=== PATIENT | male | born 1945 | race Caucasian/White ===

== ENCOUNTER 2018-10-04 13:54 | Emergency (ER) | payer MEDICARE ==
[2018-10-04 14:04] VITALS: BP 164/77
[2018-10-04] MEDS ORDERED: AZITHROMYCIN 250 MG TABLET PO STA (14:17)
--- NOTE | 2018-10-04 14:20 | ED Physician Documentation ---
PD HPI HEENT - Stated complaint Stated Complaint: JAW PX - Chief complaint Chief Complaint: Heent - History obtained from History obtained from: Patient - History of Present Illness Timing - onset: How many days ago (2) Timing - duration: Days (2) Timing - details: Still present Location: Tooth Similar symptoms before: Diagnosis (dental abscess) - Additional information Additional information: The patient is a 72-year-old male who presents with toothache of left lower molar, starting 2 days ago and persisting. He denies fever or difficulty swallowing. He states, "my teeth are a mess of problems." He has a history of similar symptoms in the past and has been treated with Zithromax. He currently takes methotrexate for psoriatic arthritis. Review of Systems Constitutional: denies: Fever Eyes: denies: Irritation Ears: denies: Ear pain Nose: denies: Congestion Throat: reports: Dental pain / toothache. denies: Sore throat Cardiac: denies: Chest pain / pressure Respiratory: denies: Dyspnea, Cough GI: denies: Abdominal Pain, Nausea, Vomiting Skin: denies: Rash Musculoskeletal: denies: Neck pain Neurologic: denies: Headache PD PAST MEDICAL HISTORY - Past Medical History Cardiovascular: Hypertension, High cholesterol : Kidney stones Musculoskeletal: Other (Psoriatic arthritis) - Past Surgical History Past Surgical History: Yes Ortho: Spine surgery HEENT: Tonsil/Adenoidectomy - Present Medications Home Medications: Ambulatory Orders Medication Instructions Recorded Confirmed Atenolol 10/10/14 10/10/14 Atorvastatin Calcium 10/10/14 10/10/14 Azithromycin [Zithromax] 250 mg PO DAILY #4 tablet 10/10/14 Etanercept [Enbrel] 10/10/14 10/10/14 Hydrocodone/Acetaminophen 1 - 2 each PO Q6H PRN #15 tablet 10/10/14 [Hydrocodon-Acetaminophen 5-325] Leucovorin Calcium 10/10/14 10/10/14 Methotrexate Sodium [Methotrexate] 10/10/14 10/10/14 Tamsulosin HCl [Flomax] 10/10/14 10/10/14 predniSONE [Prednisone] 12 mg PO DAILY 10/10/14 10/10/14 Azithromycin [Zithromax] 0 mg PO DAILY #6 tablet 10/04/18 Hydrocodone/Acetaminophen 1 - 2 each PO Q6H PRN #14 tablet 10/04/18 [Hydrocodon-Acetaminophen 5-325] - Allergies Allergies/Adverse Reactions: Allergies Allergy/AdvReac Type Severity Reaction Status Date / Time cephalexin Allergy Unknown Verified 10/04/18 14:07 clindamycin Allergy Unknown Verified 10/04/18 14:07 infliximab [From Remicade] Allergy Unknown Verified 10/04/18 14:07 - Social History Does the pt smoke?: No Smoking Status: Never smoker Does the pt drink ETOH?: Yes Does the pt have substance abuse?: No - POLST Patient has POLST: No PD ED PE NORMAL - Vitals Vital signs reviewed: Yes (hypertensive) - General General: Alert and oriented X 3, Well developed/nourished - HEENT HEENT: Atraumatic, Pharynx benign, Other (Poor dentition, with a nearly totally decayed left rear molar, second from the rear. The fractured tooth is tender to palpation. There is no gingival swelling, and no mandibular tenderness to palpation. Oropharynx is nonerythematous.) - Neck Neck: No adenopathy - Cardiac Cardiac: RRR - Respiratory Respiratory: No respiratory distress, Clear bilaterally - Abdomen Abdomen: Other (Rotund abdomen.) - Derm Derm: No rash - Neuro Neuro: Alert and oriented X 3, No motor deficit, Normal speech Results - Vitals Vitals: Oxygen O2 Source Room air PD MEDICAL DECISION MAKING - ED course Complexity details: considered differential, d/w patient ED course: The patient's presentation is most consistent with dental abscess in the left lower molar. There is no evidence of peritonsillar abscess. Treatment in the emergency department included administration of Zithromax 500 mg orally. He is being discharged with prescription for Zithromax and for Vicodin, 14 tablets. I discussed with him the importance of follow-up with dentistry. I discussed with him potentially worrisome signs or symptoms that should prompt reevaluation in the emergency department. Departure - Departure Disposition: 01 Home, Self Care Clinical Impression: Dental abscess Condition: Stable Instructions: ED Abscess Dental Follow-Up: DONALD ROBLEDO ARNP [Primary Care Provider] - Prescriptions: Azithromycin [Zithromax] 0 mg PO DAILY #6 tablet Hydrocodone/Acetaminophen [Hydrocodon-Acetaminophen 5-325] 1 - 2 each PO Q6H PRN #14 tablet PRN Reason: pain Comments: Take Zithromax daily as prescribed. You can use Vicodin as prescribed if needed for pain. Follow-up with the dentist as soon as possible. Call to schedule an appointment. Return to the emergency department if you develop increasing pain or facial swelling, difficulty swallowing, or otherwise worsening symptoms. Discharge Date/Time: 10/04/18 14:27
== END 2018-10-04 14:27 | disposition home or self-care (01) ==
LOC: ED 13:54
DX: K04.7 Periapical abscess without sinus (principal); I10 Essential (primary) hypertension; E78.00 Pure hypercholesterolemia, unspecified; L40.50 Arthropathic psoriasis, unspecified
CPT/HCPCS: 99283; A9270

== ENCOUNTER 2019-04-18 11:11 | Emergency (ER) | payer MEDICARE ==
--- NOTE | 2019-04-18 13:04 | XRAY Report ---
Reason: fall/trauma Procedure Date: 04/18/2019 Accession Number: [id number] / [id number] Procedure: XR - Ribs w/PA Chest LT CPT Code: Final Report FULL RESULT: EXAM: LEFT RIB RADIOGRAPHY EXAM DATE: 04/18/2019 12:54 PM. CLINICAL HISTORY: Fall on wet ground 04/16/2019. Bruising and trauma. COMPARISON: None. TECHNIQUE: 1 view of the chest and 2 views of the ribs. FINDINGS: Bones: There are nondisplaced fractures of the lateral left 10th, 11th, and 12th ribs. There is a lateral left 8th rib fracture that appears nonacute. Healed previous fractures of the anterior left 8th and 9th ribs. Lungs: No pneumothorax identified. Atelectasis at the lung bases. Mediastinum: Moderate cardiomegaly. Tortuous thoracic aorta. Other: Moderate to severe degenerative changes at the right shoulder. Healed previous right lateral 4th and 9th rib fractures. IMPRESSION: Acute fractures of the left 10th, 11th, and 12th ribs. No pneumothorax detected. RADIA
[2019-04-18] MEDS ORDERED: BACITRACIN ZINC OINT 1 PACKET TOP STA (14:23)
--- NOTE | 2019-04-18 14:26 | ED Physician Documentation ---
History of Present Illness - Stated complaint Stated Complaint: LT SIDE RIB PX - Chief complaint Chief Complaint: Trauma Ch/Bk - Additonal information Additional information: This is a 73-year-old male with a history of psoriatic arthritis, who presents with left-sided rib pain.On Sunday patient was walking outside of his house and slipped on icy step and landed on his left flank/posterior chest. He heard a crack and he has had immediate pain in the area. He he states that since that time he has felt his breathing has been a bit shallow because of pain. No actual shortness of breath. He denies any anterior abdominal pain. No blood in his urine. He did also tear some skin on his right forearm, has been keeping this dressed with a nonstick bandage and some manuka honey. He denies hitting his head or losing consciousness. Review of Systems Constitutional: denies: Fever Cardiac: reports: Chest pain / pressure Respiratory: denies: Cough GI: denies: Abdominal Pain Musculoskeletal: denies: Neck pain Neurologic: denies: Focal weakness PD PAST MEDICAL HISTORY - Past Medical History Cardiovascular: Hypertension, High cholesterol : Kidney stones Musculoskeletal: Other (Psoriatic arthritis) - Past Surgical History Past Surgical History: Yes Ortho: Spine surgery HEENT: Tonsil/Adenoidectomy - Present Medications Home Medications: Ambulatory Orders Medication Instructions Recorded Confirmed Atorvastatin Calcium 10/10/14 10/10/14 Azithromycin [Zithromax] 250 mg PO DAILY #4 tablet 10/10/14 Etanercept [Enbrel] 10/10/14 10/10/14 Hydrocodone/Acetaminophen 1 - 2 each PO Q6H PRN #15 tablet 10/10/14 [Hydrocodon-Acetaminophen 5-325] Leucovorin Calcium 10/10/14 10/10/14 Methotrexate Sodium [Methotrexate] 10/10/14 10/10/14 Tamsulosin HCl [Flomax] 10/10/14 10/10/14 atenoloL [Atenolol] 10/10/14 10/10/14 predniSONE [Prednisone] 12 mg PO DAILY 10/10/14 10/10/14 Azithromycin [Zithromax] 0 mg PO DAILY #6 tablet 10/04/18 Hydrocodone/Acetaminophen 1 - 2 each PO Q6H PRN #14 tablet 10/04/18 [Hydrocodon-Acetaminophen 5-325] Lidocaine Patch 5% [Lidoderm Patch] 1 patch TOP DAILY PRN #10 patch 04/18/19 Nitrofurantoin Monohyd/M-Cryst 100 mg PO BID #10 capsule 04/18/19 [Macrobid 100 mg Capsule] Oxycodone HCl/Acetaminophen 1 - 2 each PO Q6H PRN #10 tablet 04/18/19 [Percocet 5-325 mg Tablet] methocarbamoL [Methocarbamol] 500 mg PO TID PRN #15 tablet 04/18/19 - Allergies Allergies/Adverse Reactions: Allergies Allergy/AdvReac Type Severity Reaction Status Date / Time cephalexin Allergy Unknown Verified 04/18/19 11:29 clindamycin Allergy Unknown Verified 04/18/19 11:29 infliximab [From Remicade] Allergy Unknown Verified 04/18/19 11:29 - Social History Does the pt smoke?: No Smoking Status: Never smoker Does the pt drink ETOH?: Yes Does the pt have substance abuse?: No - POLST Patient has POLST: No PD ED PE NORMAL - Vitals Vital signs reviewed: Yes - General General: Alert and oriented X 3 - HEENT HEENT: Atraumatic, PERRL - Neck Neck: Supple, no meningeal sign, No bony TTP - Cardiac Cardiac: RRR - Respiratory Respiratory: No respiratory distress, Clear bilaterally, Other (Bruising over the left posterior ribs with tenderness in the lower posterior ribs.) - Abdomen Abdomen: Normal bowel sounds, Soft, Non tender, Non distended - Derm Derm: Warm and dry - Extremities Extremities: Other (There are 2 skin tears each of which is 4 to 5 cm in length and 2 cm in width, and is over the right forearm. There is granulation tissue present. These wounds extend into the subcutaneous tissue, there is no surrounding erythema, no exposed tendon or muscle. No bony tenderness) - Neuro Neuro: Alert and oriented X 3 - Psych Psych: Normal mood, Normal affect Results - Vitals Vitals: Oxygen O2 Source Room air - Labs Labs: Laboratory Tests 04/18/19 04/18/19 04/18/19 14:37 14:37 14:57 WBC 12.7 H RBC 4.87 Hgb 15.8 Hct 49.5 MCV 101.6 H MCH 32.4 H MCHC 31.9 L RDW 15.6 H Plt Count 275 MPV 9.4 Neut # (Auto) 9.3 H Lymph # (Auto) 1.8 [place] # (Auto) 1.3 H Eos # (Auto) 0.1 Baso # (Auto) 0.1 Absolute Nucleated RBC 0.00 Nucleated RBC % 0.0 Sodium 138 Potassium 3.3 L Chloride 98 L Carbon Dioxide 26 Anion Gap 14.0 H BUN 17 Creatinine 0.7 Estimated GFR (MDRD) 111 Glucose 127 H Calcium 8.9 Urine Color YELLOW Urine Clarity CLEAR Urine pH 6.0 Ur Specific [place] 1.015 Urine Protein NEGATIVE Urine Glucose (UA) NEGATIVE Urine Ketones NEGATIVE Urine Occult Blood NEGATIVE Urine Nitrite NEGATIVE Urine Bilirubin NEGATIVE Urine Urobilinogen 0.2 (NORMAL) Ur Leukocyte Esterase TRACE H Urine RBC 0-5 Urine WBC 6-10 H Urine WBC Clumps PRESENT Ur Squamous Epith Cells FEW Squamous Urine Bacteria Few Urine Casts 3-5 Hyaline Casts Ur Microscopic Review INDICATED - Rads (name of study) Ribs/chest Radiology: Other (Nondisplaced 10th, 11th, 12th rib fractures) PD MEDICAL DECISION MAKING - ED course Complexity details: considered differential (Rib fracture, contusion, PTX, PNA) ED course: On arrival patient is in no acute distress, his exam he does have bruising over his left flank/left upper chest, x-ray does reveal 3 rib fractures consistent with his pain. These fractures occurred 4 days ago and patient feels that he is improving, his oxygen saturation is normal, and he is overall well-appearing, speaking with him about observation versus discharge home he is feeling better day by day and he would like to try management at home. I discussed the risk of complications rib fractures given his age, and that if he has any worsening he needs to return to the emergency department for repeat evaluation. He is in agreement. He was given incentive spirometer. His wounds already started to granulate and do not appear appropriate for closure at this time, there were dressed with bacitracin and nonstick bandages and I reviewed wound care with him and return precautions for signs of infection. He has no bony tenderness of the spine. It obtain basic labs to check for anemia or signs of a retroperitoneal injury, though I think this is less likely, it sounds like he really impaced his posterior chest. Labs show normal hemoglobin, no significant blood in urine, does show possible UTI. Pt states he does have slightly more frequent urination but no dysuria, no fever, no abdominal pain. He has allergies to keflex and clindamycin and is on methotrexate, which makes our abx options limited. We will try nitrofurantoin (creatinine is normal) and he will follow up with his PCP on this, or return here with any worsening. Using incentive spirometer he is pulling close to 2500 mL, and repeats this several times. He would like to go home, and given he understands the risks of doing so I think this is reasonable. He was discharged home in the care of family with precriptions for medications for pain control after thorough discussion of their use and risks Departure - Departure Disposition: Home, Self Care Clinical Impression: Ribs, multiple fractures Qualifiers: Encounter type: initial encounter Fracture type: closed Laterality: left Qualified Code(s): S22.42XA - Multiple fractures of ribs, left side, initial encounter for closed fracture Condition: Good Instructions: ED Fx Rib Follow-Up: DONALD ROBLEDO ARNP [Primary Care Provider] - Prescriptions: Lidocaine Patch 5% [Lidoderm Patch] 1 patch TOP DAILY PRN #10 patch PRN Reason: pain methocarbamoL [Methocarbamol] 500 mg PO TID PRN #15 tablet PRN Reason: Pain Nitrofurantoin Monohyd/M-Cryst [Macrobid 100 mg Capsule] 100 mg PO BID #10 capsule Oxycodone HCl/Acetaminophen [Percocet 5-325 mg Tablet] 1 - 2 each PO Q6H PRN #10 tablet PRN Reason: pain Comments: You have 3 rib fractures. Please use the incentive spirometer as we talked about, and if you having worsening symptoms such as difficulty breathing, coughing up blood, severe chest pain, or fever, return to the emergency department immediately. You may continue using the naproxen for pain, and try the lidocaine patches as well. If this is not sufficient in controlling her pain, he may try the methocarbamol as prescribed, or the Percocet. Do not combine these medications at the same time, as they both can be sedating. You may also have a urinary tract infection. Please take the antibiotic prescribed, if you are having urinary symptoms or any new concerning symptoms return to the emergency department. Do not drink alcohol or drive while taking narcotic pain medication. Note that many narcotic pain relievers also contain Tylenol/acetaminophen. Please ensure that your total dose of acetaminophen from all sources does not exceed 3 g (3000 mg) per day. You may get constipated while on this medication. Take a stool softener such as Colace twice a day while you are on it. Also add an [id number] laxative such as senna or MiraLAX on any day that you do not have a bowel movement. If you received a narcotic pain medication or sedative while in the emergency department, do not drive for the next 24 hours. Discharge Date/Time: 04/18/19 16:00
[2019-04-18 14:40] LABS: BASOPHILS # (AUTO) 0.1 10^3/uL (0.0-0.1); BASOPHILS % (AUTO) 0.6 %; EOSINOPHILS # (AUTO) 0.1 10^3/uL (0.0-0.7); EOSINOPHILS % (AUTO) 0.9 %; HGB - HEMOGLOBIN 15.8 g/dL (14.0-18.0); LYMPHOCYTES # (AUTO) 1.8 10^3/uL (1.5-3.5); LYMPHOCYTES % (AUTO) 14.2 %; MEAN CORPUSCULAR HEMOGLOBIN 32.4 pg (27.0-31.0); MEAN CORPUSCULAR HGB CONC 31.9 g/dL (32.0-36.0); MEAN CORPUSCULAR VOLUME 101.6 fL (80.0-94.0); MEAN PLATELET VOLUME 9.4 fL (7.4-11.4); MONOCYTES # (AUTO) 1.3 10^3/uL (0.0-1.0); MONOCYTES % (AUTO) 10.2 %; NEUTROPHILS # (AUTO) 9.3 10^3/uL (1.5-6.6); NEUTROPHILS % (AUTO) 73.3 %; PLT - PLATELET COUNT 275 10^3/uL (130-450); RED BLOOD COUNT 4.87 10^6/uL (4.70-6.10); RED CELL DISTRIBUTION WIDTH 15.6 % (12.0-15.0); WHITE BLOOD COUNT 12.7 x10^3/uL (4.8-10.8)
[2019-04-18 14:53] LABS: CALCIUM 8.9 mg/dL (8.5-10.3); CREATININE 0.7 mg/dL (0.6-1.2)
[2019-04-18 15:07] LABS: BILIRUBIN,URINE NEGATIVE (NEGATIVE); CLARITY,URINE CLEAR (CLEAR); GLUCOSE, URINE (UA) NEGATIVE (NEGATIVE); KETONES,URINE (UA) NEGATIVE (NEGATIVE); LEUKOCYTE ESTERASE, URINE TRACE (NEGATIVE); NITRITE,URINE NEGATIVE (NEGATIVE); OCCULT BLOOD,URINE NEGATIVE (NEGATIVE); PROTEIN,URINE NEGATIVE (NEGATIVE); UROBILINOGEN,URINE 0.2 (NORMAL) E.U./dL (NORMAL)
[2019-04-18 15:15] LABS: BACTERIA,URINE Few /HPF (None Seen); CASTS, URINE 3-5 Hyaline Casts /LPF; RBC,URINE 0-5 /HPF (0-5); SQUAMOUS EPITHELIAL CELL,UR FEW Squamous (<= Few); WBC CLUMPS,URINE PRESENT
[2019-04-18 15:16] VITALS: BP 150/80
== END 2019-04-18 16:00 | disposition home or self-care (01) ==
LOC: ED 11:11
DX: S22.42XA Multiple fractures of ribs, left side, initial encounter for closed fracture (principal); S51.811A Laceration without foreign body of right forearm, initial encounter; W00.1XXA Fall from stairs and steps due to ice and snow, initial encounter; Y93.01 Activity, walking, marching and hiking; Y92.008 Other place in unspecified non-institutional (private) residence as the place of occurrence of the external cause; R35.0 Frequency of micturition; I10 Essential (primary) hypertension; L40.50 Arthropathic psoriasis, unspecified; Z88.1 Allergy status to other antibiotic agents
CPT/HCPCS: 36415; 71101; 80048; 81001; 85025; 99284; A9270; 81003

== ENCOUNTER 2020-11-09 17:03 | Outpatient (CLI) | payer MEDICARE | END 2020-11-09 17:04 | disposition home or self-care (01) | LOC: COV 17:03 | PROVIDERS: ATTEND Internal Medicine Gastroenterology | DX: Z01.812 Encounter for preprocedural laboratory examination (principal); Z20.822 Contact with and (suspected) exposure to COVID-19 ==

== ENCOUNTER 2021-02-27 10:18 | Emergency (ER) | payer MEDICARE ==
[2021-02-27 10:39] VITALS: BP 133/72
[2021-02-27] MEDS ORDERED: DOXYCYCLINE 100 MG TABLET PO STA (12:14)
--- NOTE | 2021-02-27 12:16 | ED Physician Documentation ---
PD HPI UPPER EXT INJURY - Stated complaint Stated Complaint: L HAND, SORE, WOUND - Chief complaint Chief Complaint: Laceration - History obtained from History obtained from: Patient - Additonal information Additional information: 75-year-old gentleman who is up-to-date on tetanus fell about 3 days ago and has a scrape on the dorsum of his left hand. Note made that he was hospitalized a few weeks ago for a staph infection in his right thumb. He states it was not a resistant staph as far as he knows. Last night the pain went up and it started to get red. No fevers. Review of Systems Constitutional: reports: Reviewed and negative Eyes: reports: Reviewed and negative Ears: reports: Reviewed and negative PD PAST MEDICAL HISTORY - Past Medical History Cardiovascular: Hypertension, High cholesterol : Kidney stones Musculoskeletal: Other (Psoriatic arthritis) - Past Surgical History Past Surgical History: Yes Ortho: Spine surgery HEENT: Tonsil/Adenoidectomy - Present Medications Home Medications: Ambulatory Orders Medication Instructions Recorded Confirmed Atorvastatin Calcium 10/10/14 10/10/14 Azithromycin [Zithromax] 250 mg PO DAILY #4 tablet 10/10/14 Etanercept [Enbrel] 10/10/14 10/10/14 Hydrocodone/Acetaminophen 1 - 2 each PO Q6H PRN #15 tablet 10/10/14 [Hydrocodon-Acetaminophen 5-325] Leucovorin Calcium 10/10/14 10/10/14 Methotrexate Sodium [Methotrexate] 10/10/14 10/10/14 Tamsulosin HCl [Flomax] 10/10/14 10/10/14 atenoloL [Atenolol] 10/10/14 10/10/14 predniSONE [Prednisone] 12 mg PO DAILY 10/10/14 10/10/14 Azithromycin [Zithromax] 0 mg PO DAILY #6 tablet 10/04/18 Hydrocodone/Acetaminophen 1 - 2 each PO Q6H PRN #14 tablet 10/04/18 [Hydrocodon-Acetaminophen 5-325] Lidocaine Patch 5% [Lidoderm Patch] 1 patch TOP DAILY PRN #10 patch 04/18/19 Nitrofurantoin Monohyd/M-Cryst 100 mg PO BID #10 capsule 04/18/19 [Macrobid 100 mg Capsule] Oxycodone HCl/Acetaminophen 1 - 2 each PO Q6H PRN #10 tablet 04/18/19 [Percocet 5-325 mg Tablet] methocarbamoL [Methocarbamol] 500 mg PO TID PRN #15 tablet 04/18/19 Doxycycline Hyclate 100 mg PO BID #14 02/27/21 - Allergies Allergies/Adverse Reactions: Allergies Allergy/AdvReac Type Severity Reaction Status Date / Time cephalexin Allergy Unknown Verified 02/27/21 10:36 clindamycin Allergy Unknown Verified 02/27/21 10:36 infliximab [From Remicade] Allergy Unknown Verified 02/27/21 10:36 - Social History Does the pt smoke?: No Smoking Status: Never smoker Does the pt drink ETOH?: Yes Does the pt have substance abuse?: No - POLST Patient has POLST: No PD ED PE NORMAL - Vitals Vital signs reviewed: Yes - General General: Alert and oriented X 3, No acute distress - Extremities Extremities: Other (There is a healing shallow laceration on the dorsum of the left hand near the distal fourth metacarpal. There is mild surrounding cellulitis. No drainage to culture. Full range of motion.) - Neuro Neuro: Alert and oriented X 3, Normal speech Results - Vitals Vitals: Vital Signs - 24 hr 02/27/21 10:32 Temperature 36.8 C Heart Rate 75 Respiratory 18 Rate Blood Pressure 133/72 H O2 Saturation 94 Oxygen O2 Source Room air Departure - Departure Disposition: 01 Home, Self Care Clinical Impression: Cellulitis of left hand Condition: Good Record reviewed to determine appropriate education?: Yes Instructions: Cellulitis Dc Prescriptions: Doxycycline Hyclate 100 mg PO BID #14 Comments: As discussed, return if worsening, if redness is going up the arm or if you develop a fever. Follow-up with your doctor midweek for recheck.
== END 2021-02-27 12:40 | disposition home or self-care (01) ==
LOC: ED 10:18
DX: L03.114 Cellulitis of left upper limb (principal)
CPT/HCPCS: 99282; 99283; A9270

== ENCOUNTER 2021-08-23 10:29 | Outpatient (CLI) | payer MEDICARE | END 2021-08-23 10:30 | disposition left against medical advice (07) | LOC: EMS 10:29 | DX: I95.9 Hypotension, unspecified (principal) ==

== ENCOUNTER 2021-08-23 12:41 | Emergency (ER) | payer MEDICARE ==
[2021-08-23 14:04] LABS: BASOPHILS # (AUTO) 0.1 10^3/uL (0.0-0.1); BASOPHILS % (AUTO) 0.4 %; EOSINOPHILS # (AUTO) 0.1 10^3/uL (0.0-0.7); HCT - HEMATOCRIT 49.3 % (42.0-52.0); HGB - HEMOGLOBIN 15.3 g/dL (14.0-18.0); LYMPHOCYTES # (AUTO) 1.2 10^3/uL (1.5-3.5); LYMPHOCYTES % (AUTO) 10.7 %; MEAN CORPUSCULAR HEMOGLOBIN 30.7 pg (27.0-31.0); MEAN CORPUSCULAR VOLUME 98.8 fL (80.0-94.0); MEAN PLATELET VOLUME 10.1 fL (7.4-11.4); MONOCYTES # (AUTO) 0.5 10^3/uL (0.0-1.0); MONOCYTES % (AUTO) 4.7 %; NEUTROPHILS # (AUTO) 9.2 10^3/uL (1.5-6.6); NEUTROPHILS % (AUTO) 82.8 %; PLT - PLATELET COUNT 234 10^3/uL (130-450); RED BLOOD COUNT 4.99 10^6/uL (4.70-6.10); RED CELL DISTRIBUTION WIDTH 15.8 % (12.0-15.0); WHITE BLOOD COUNT 11.2 x10^3/uL (4.8-10.8)
[2021-08-23 14:13] LABS: CALCIUM 9.1 mg/dL (8.5-10.3); CREATININE 0.7 mg/dL (0.6-1.2); POTASSIUM 4.5 mmol/L (3.5-5.0)
--- NOTE | 2021-08-23 15:21 | ED Physician Documentation ---
History of Present Illness - Stated complaint Stated Complaint: LOW BLOOD PRESSURE - Chief complaint Chief Complaint: General - History obtained from History obtained from: Patient - Additonal information Additional information: 75-year-old gentleman with multiple comorbidities was switched from atenolol to lisinopril and took his first dose this morning. Subsequently felt weak and dizzy and checked his blood pressure and it was low as 62/44 and was referred here for treatment. He is feeling better by now. No associated chest pain or new trouble breathing. No pedal edema or calf pain. No urinary complaints. Review of Systems Constitutional: reports: Fatigue. denies: Fever, Chills Cardiac: denies: Chest pain / pressure, Palpitations Respiratory: denies: Dyspnea, Cough GI: denies: Abdominal Pain, Nausea, Vomiting PD PAST MEDICAL HISTORY - Past Medical History Cardiovascular: Hypertension, High cholesterol : Kidney stones Musculoskeletal: Other (Psoriatic arthritis) - Past Surgical History Past Surgical History: Yes Ortho: Spine surgery HEENT: Tonsil/Adenoidectomy - Present Medications Home Medications: Ambulatory Orders Medication Instructions Recorded Confirmed Atorvastatin Calcium 10/10/14 10/10/14 Azithromycin [Zithromax] 250 mg PO DAILY #4 tablet 10/10/14 Etanercept [Enbrel] 10/10/14 10/10/14 Hydrocodone/Acetaminophen 1 - 2 each PO Q6H PRN #15 tablet 10/10/14 [Hydrocodon-Acetaminophen 5-325] Leucovorin Calcium 10/10/14 10/10/14 Methotrexate Sodium [Methotrexate] 10/10/14 10/10/14 Tamsulosin HCl [Flomax] 10/10/14 10/10/14 atenoloL [Atenolol] 10/10/14 10/10/14 predniSONE [Prednisone] 12 mg PO DAILY 10/10/14 10/10/14 Azithromycin [Zithromax] 0 mg PO DAILY #6 tablet 10/04/18 Hydrocodone/Acetaminophen 1 - 2 each PO Q6H PRN #14 tablet 10/04/18 [Hydrocodon-Acetaminophen 5-325] Lidocaine Patch 5% [Lidoderm Patch] 1 patch TOP DAILY PRN #10 patch 04/18/19 Nitrofurantoin Monohyd/M-Cryst 100 mg PO BID #10 capsule 04/18/19 [Macrobid 100 mg Capsule] Oxycodone HCl/Acetaminophen 1 - 2 each PO Q6H PRN #10 tablet 04/18/19 [Percocet 5-325 mg Tablet] methocarbamoL [Methocarbamol] 500 mg PO TID PRN #15 tablet 04/18/19 Doxycycline Hyclate 100 mg PO BID #14 02/27/21 - Allergies Allergies/Adverse Reactions: Allergies Allergy/AdvReac Type Severity Reaction Status Date / Time cephalexin Allergy Unknown Verified 08/23/21 12:57 clindamycin Allergy Unknown Verified 08/23/21 12:57 infliximab [From Remicade] Allergy Unknown Verified 08/23/21 12:57 - Social History Does the pt smoke?: No Smoking Status: Never smoker Does the pt drink ETOH?: Yes Does the pt have substance abuse?: No - POLST Patient has POLST: No PD ED PE NORMAL - Vitals Vital signs reviewed: Yes - General General: Alert and oriented X 3, No acute distress, Other (On examination now I checked his blood pressure and it was 122/77.) - Neck Neck: Supple, no meningeal sign, No bony TTP - Cardiac Cardiac: RRR, No murmur - Respiratory Respiratory: No respiratory distress, Clear bilaterally - Abdomen Abdomen: Normal bowel sounds, Soft, Non tender - Back Back: No CVA TTP, No spinal TTP - Derm Derm: Normal color, Warm and dry - Extremities Extremities: No edema, No calf tenderness / cord - Neuro Neuro: Alert and oriented X 3, Normal speech Results - Vitals Vitals: Vital Signs - 24 hr 08/23/21 12:48 Heart Rate 53 L Respiratory 14 Rate Blood Pressure 112/73 O2 Saturation 98 Oxygen O2 Source Room air - Labs Labs: Laboratory Tests 08/23/21 08/23/21 13:57 13:57 WBC 11.2 H RBC 4.99 Hgb 15.3 Hct 49.3 MCV 98.8 H MCH 30.7 MCHC 31.0 L RDW 15.8 H Plt Count 234 MPV 10.1 Neut # (Auto) 9.2 H Lymph # (Auto) 1.2 L [place] # (Auto) 0.5 Eos # (Auto) 0.1 Baso # (Auto) 0.1 Absolute Nucleated RBC 0.00 Nucleated RBC % 0.0 Sodium 139 Potassium 4.5 Chloride 104 Carbon Dioxide 26 Anion Gap 9.0 BUN 18 Creatinine 0.7 Estimated GFR (MDRD) 111 Glucose 140 H Calcium 9.1 PD MEDICAL DECISION MAKING - ED course ED course: 75-year-old gentleman with transient hypotension resolved after first dose of lisinopril. No other pertinent positive findings on work-up. He was advised to cease lisinopril until talking with his doctor. Departure - Departure Disposition: Home, Self Care Clinical Impression: Hypotension Condition: Good Record reviewed to determine appropriate education?: Yes Comments: Blood pressure during exam here for me was 122/77 which is normal. Do not take lisinopril until you talk with your doctor. Follow-up with your doctor, next available appointment. Return for new or worsening symptoms.
[2021-08-23 15:40] VITALS: BP 125/77
== END 2021-08-23 15:39 | disposition home or self-care (01) ==
LOC: ED 12:41
DX: I95.9 Hypotension, unspecified (principal); I10 Essential (primary) hypertension
CPT/HCPCS: 36415; 80048; 85025; 99283